=== PATIENT | male | born 1985 | race African-American/Black ===

== ENCOUNTER 2020-08-01 05:00 | Emergency (ER) | payer SELFPAY ==
[2020-08-01] MEDS ORDERED: Ziprasidone 20 MG VIAL ONE (05:07)
[2020-08-01] MEDS ORDERED: Sterile Water 10 ML ONE (05:07)
== END 2020-08-01 07:33 ==
LOC: ERS 05:00
DX: S63.501A Unspecified sprain of right wrist, initial encounter (principal); S40.211A Abrasion of right shoulder, initial encounter; S80.212A Abrasion, left knee, initial encounter; S80.211A Abrasion, right knee, initial encounter; X50.9XXA Other and unspecified overexertion or strenuous movements or postures, initial encounter
CPT/HCPCS: 70450; 72125; 96372; J3486